=== PATIENT | female | born 1950 | race Caucasian/White ===

== ENCOUNTER 2018-06-06 23:59 | Emergency (ER) | payer OTHER, MEDICAID ==
[~2018-06-06] VITALS: Ht 157.5 cm; Wt 68.0 kg
[2018-06-07 00:02] VITALS: Ht 157.5 cm; Wt 68.0 kg
[2018-06-07 02:20] VITALS: BP 124/74
== END 2018-06-07 02:20 | disposition home or self-care (01) ==
LOC: ED 23:59
DX: J45.901 Unspecified asthma with (acute) exacerbation (principal); L21.9 Seborrheic dermatitis, unspecified; I10 Essential (primary) hypertension; M19.90 Unspecified osteoarthritis, unspecified site
CPT/HCPCS: J7512; J7613; J7644

== ENCOUNTER 2020-01-08 12:16 | Emergency (ER) | payer OTHER, MEDICAID ==
[~2020-01-08] VITALS: Ht 152.4 cm; Wt 64.4 kg
[2020-01-08 12:31] VITALS: Ht 152.4 cm; Wt 64.4 kg
[2020-01-08 14:16] VITALS: BP 143/83
== END 2020-01-08 14:16 | disposition home or self-care (01) ==
LOC: ED 12:16
DX: M06.861 Other specified rheumatoid arthritis, right knee (principal); M06.831 Other specified rheumatoid arthritis, right wrist; I10 Essential (primary) hypertension
CPT/HCPCS: J1885